=== PATIENT | male | born 1955 | race Caucasian/White ===

== ENCOUNTER 2016-07-28 17:14 | Inpatient (IN) | payer OTHER ==
[~2016-07-28] VITALS: Ht 182.9 cm; Wt 84.5 kg
[2016-07-28] VITALS (12 sets, daily range): BP systolic 96–155; BP diastolic 62–96; PULSE 82–166; RESP 13–25; O2SAT 95–100
[~2016-07-28 17:14] MED LIST: ALBU2.5V4 NEB; ASPI81TA3 PO; ATOR40TA69 PO; LISI-571 PO; METO25TA99 PO; NITR0.4T SL; PRAS10TA5 PO
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
[2016-07-28] MEDS ORDERED: Diltiazem 5 mg/mL 5 mL Inj ONE (17:22)
[2016-07-28] MEDS ORDERED: 0.9% Sodium Chloride 1,000 ML IV ONE (17:24)
[2016-07-28] MEDS ORDERED: Ondansetron 2 mg/mL 2 mL Inj IVPUSH ONE (17:25)
[2016-07-28] MEDS ORDERED: Diltiazem 5 mg/mL 5 mL Inj IVPUSH ONE ×2 (17:30→17:50)
[2016-07-28 17:40] LABS: BASOPHILS % (AUTO) 0.5 % (0-3); EOSINOPHILS % (AUTO) 3.6 % (0-5); MONOCYTES % (AUTO) 9.5 % (4-12); Mean Corpuscular Hemoglobin 28.6 pg (27.0-35.0); Mean Corpuscular Volume 84.2 fL (81-100); NEUTROPHILS % (AUTO) 61.2 % (40-74); Platelet Count 269 bil/L (150-400)
[2016-07-28 17:55] LABS: D-Dimer < 0.50 mg/L FEU (<0.50); INR 0.98 ratio
[2016-07-28] MEDS ORDERED: Propofol 10 mg/mL 20 mL Inj IVPUSH ONE ×2 (18:00→18:45)
[2016-07-28 18:05] LABS: TROPONIN T < 0.010 ug/L (0.0-0.011)
[2016-07-28 18:14] LABS: Creatine Kinase 120 U/L (21-232)
[2016-07-28] MEDS ORDERED: Heparin 25K Unit/500mL 0.45 NS 25,000 UNIT in IV Premix 1 EACH IV ONE (18:35)
[2016-07-28] MEDS ORDERED: Heparin 5,000 Unit/mL Inj IVPUSH ONE (18:35)
[2016-07-28] MEDS ORDERED: Nitroglycerin 2% 1 Gm Ointment TOPICAL SCH (18:45)
--- NOTE | 2016-07-28 18:51 | DRSVH ---
PROCEDURE: X-RAY CHEST ONE VIEW, PORTABLE ([id number]) INDICATIONS: cp TECHNIQUE: One view of the chest was acquired. COMPARISON: [facility], CR, XR CHEST 1VW (PORTABLE), 01/08/2016, 22:58. FINDINGS: Surgical changes and devices: None. Lungs and pleura: No pleural effusions or pneumothorax. Lungs are clear. The right costophrenic an gle is not included in study. Mediastinum: Mediastinal contours appear normal. Heart size is normal. Bones and chest wall: No suspicious bony lesions. Overlying soft tissues appear unremarkable. IMPRESSION: No acute disease Dictated by: Juanjo Luther M.D. on 07/28/2016 at 18:49 Approved by: Juanjo Luther M.D. on 07/28/2016 at 18:49
[2016-07-28] MEDS ORDERED: METO25TA6 PO (18:56)
[2016-07-28] MEDS ORDERED: VITA400C64 PO (18:56)
[2016-07-28] MEDS ORDERED: Alum-Mag Hydrox-Simeth 30 mL Suspension PO PRN (20:05)
[2016-07-28] MEDS ORDERED: Polyethylene Glycol (PEG) 17 Gm Powder PO PRN (20:05)
[2016-07-28] MEDS ORDERED: Senna-Docusate 8.6-50 mg Tablet PO PRN (20:05)
[2016-07-28] MEDS ORDERED: Atropine 1 mg/10 mL (Code) Syringe IVPUSH PRN (20:05)
[2016-07-28] MEDS ORDERED: Ondansetron 2 mg/mL 2 mL Inj IVPUSH PRN (20:05)
[2016-07-28] MEDS ORDERED: Heparin 5,000 Unit/mL Inj IVPUSH PRN (20:50)
[2016-07-28] MEDS ORDERED: Heparin 25K Unit/500mL 0.45 NS 25,000 UNIT in IV Premix 1 EACH IV SCH (20:50)
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
[2016-07-28] MEDS: MeTOProlol XL 25 mg ER24 Tablet PO SCH (21:38)
[2016-07-28] MEDS: 0.9% Sodium Chloride 1,000 ML IV SCH (21:38)
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
[2016-07-29] VITALS (11 sets, daily range): BP systolic 94–115; BP diastolic 64–78; PULSE 65–91; RESP 15–20; O2SAT 95–98
[2016-07-29] MEDS: Albuterol-Ipratropium 3 mL Inhalation Solution NEB PRN ×3 (00:02→21:36)
--- NOTE | 2016-07-29 00:09 | NUR ---
Admit: Pt admitted to [facility] room 2030. med rec completed in ER. Pt denies any pain. Heparin gtt infusing per cardiac protocol. Sp02 90s on RA. Tele Showing Afib 90s. however HR did increased to low 100s-130s. Discussed with Dr. Lopez HR. states to monitor HR and if sustaining above 120 to notify him. HR currently low 100s- does briefly increase to 120-130s but does not sustain. Second troponin came back elevated @ 0.286- MD aware. PT resting comfortably in bed- care ongoing.
[2016-07-29] MEDS: Sodium Chloride LOK Flush 10 mL Syringe IVFLUSH SCH ×4 (00:52→23:18)
[2016-07-29] MEDS ORDERED: Potassium Chloride Inj 20 MEQ in Dextrose 5% 250 ML IV ONE (00:55)
[2016-07-29 02:42] LABS: BASOPHILS % (AUTO) 0.5 % (0-3); EOSINOPHILS % (AUTO) 3.9 % (0-5); MONOCYTES % (AUTO) 7.2 % (4-12); Mean Corpuscular Hemoglobin 28.6 pg (27.0-35.0); Mean Corpuscular Volume 85.9 fL (81-100); NEUTROPHILS % (AUTO) 63.2 % (40-74); Platelet Count 187 bil/L (150-400)
[2016-07-29 03:26] LABS: TROPONIN T 0.542 ug/L (0.0-0.011)
[2016-07-29] MEDS: 0.9% Sodium Chloride 1,000 ML IV SCH ×2 (06:45→16:59)
[2016-07-29] MEDS: MeTOProlol XL 25 mg ER24 Tablet PO SCH ×2 (08:47→19:54)
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
--- NOTE | 2016-07-29 13:35 | PCM.PNMED ---
Subjective Date of Service July 29, 2016 Subjective Patient is a 60-year-old male with a history of asthma, tobacco abuse, and recent STEMI s/p 3 bare metal stents who presented to the ED c/o heavy substernal chest pain associated diaphoresis, fatigue and shortness of breath and found to be in Afib w/RVR. Admitted for further evaluation and management of Afib w/RVR and possible NSTEMI. Hospital day #1. Admitted to [facility] and started on heparin drip. Remained hemodynamically stable overnight. Initial troponin was negative and trended up: 0.542 and most recent troponin 0.484. This morning patient states that his chest pressure has improved significantly. He does report mild shortness of breath but denies diaphoresis, nausea or vomiting. Exam Vital Signs Vital Sign - Last Date Time Temp Pulse Resp B/P Pulse Ox O2 Delivery O2 Flow Rate FiO2 07/29/16 08:37 36.5 80 16 115/78 98 Room Air 07/28/16 20:26 2 Intake and Output 07/28/16 07/28/16 07/29/16 Cumulative From/Thru 15:00 23:00 07:00 07/28/16 17:16 - 07/29/16 05:56 Intake Total 1000 ml 1481 ml 2481 ml Output Total 400 ml 400 ml Balance 1000 ml 1081 ml 2081 ml Intake Oral 200 ml 200 ml IV Total 1000 ml 1281 ml 2281 ml Output Urine Total 400 ml 400 ml Exam General: Well developed, in no acute distress, communicating appropriately HEENT: Normocephalic and atraumatic, PERRLA, Oropharynx moist and pink, poor dentition Neck: Soft, nontender, trachea midline, no JVD noted Cardiovascular: Regular rate and rhythm, with soft systolic murmur, peripheral pulses intact and equal Pulmonary: Normal respiratory effort, grossly clear to auscultation bilaterally w/mild crackles at the bases, no wheezing or rhonchi Abdomen: Soft, nondistended, nontender, no organomegaly or masses appreciated. Bowel tones present. Musculoskeletal: MS grossly intact and equal, no swollen or tender joints, no clubbing or edema Neurologic: Cranial nerves grossly intact, no focal deficits Skin: Normal temperature and turgor, no rashes or ulcerations noted Psychiatric: Appropriate mood and affect, alert and oriented x3. IVs and Medications Medications Reviewed: Medications were reviewed in detail Lab and Diagnostics Laboratory Tests Test 07/28/16 17:20 07/28/16 22:10 07/29/16 02:30 07/29/16 08:40 White Blood Count 13.5th/mm3 (3.8-10.1) 9.7th/mm3 (3.8-10.1) Red Blood Count 5.56mil/mm3 (4.40-5.80) 4.19mil/mm3 (4.40-5.80) Hemoglobin 15.9g/dL (13.8-17.2) 12.0g/dL (13.8-17.2) 12.6g/dL (13.8-17.2) Hematocrit 46.8% (41.0-50.0) 36.0% (41.0-50.0) 37.9% (41.0-50.0) Mean Corpuscular Volume 84.2fL (81-100) 85.9fL (81-100) Mean Corpuscular Hemoglobin 28.6pg (27.0-35.0) 28.6pg (27.0-35.0) Mean Corpuscular Hemoglobin Concent 34.0% (32.0-37.0) 33.3% (32.0-37.0) Red Cell Distribution Width 13.4% (12.3-15.4) 13.3% (12.3-15.4) Platelet Count 269bil/L (150-400) 187bil/L (150-400) Neutrophils (%) (Auto) 61.2% (40-74) 63.2% (40-74) Lymphocytes (%) (Auto) 24.8% (14-46) 24.9% (14-46) Monocytes (%) (Auto) 9.5% (4-12) 7.2% (4-12) Eosinophils (%) (Auto) 3.6% (0-5) 3.9% (0-5) Basophils (%) (Auto) 0.5% (0-3) 0.5% (0-3) Prothrombin Time 10.5sec (8.1-12.5) Prothromb Time International Ratio 0.98ratio D-Dimer < 0.50mg/L FEU (<0.50) Sodium Level 135mEq/L (134-144) 139mEq/L (134-144) Potassium Level 3.6mEq/L (3.5-5.2) 3.7mEq/L (3.5-5.2) 4.1mEq/L (3.5-5.2) Chloride Level 95mEq/L (97-108) 103mEq/L (97-108) Carbon Dioxide Level 20mmol/L (18-29) 21mmol/L (18-29) Blood Urea Nitrogen 22mg/dL (8-27) 21mg/dL (8-27) Creatinine 1.06mg/dL (0.76-1.27) 0.79mg/dL (0.76-1.27) Estimat Glomerular Filtration Rate 75mL/min (>59) 106mL/min (>59) Glucose Level 116mg/dL (60-99) 105mg/dL (60-99) Calcium Level 10.3mg/dL (8.5-10.1) 8.6mg/dL (8.5-10.1) Magnesium Level 2.0mg/dL (1.6-2.6) Total Bilirubin 0.4mg/dL (0.0-1.2) Aspartate Amino Transf (AST/SGOT) 24U/L (0-50) Alanine Aminotransferase (ALT/SGPT) 22U/L (0-44) Alkaline Phosphatase 77U/L (25-160) Total Creatine Kinase 120U/L (21-232) Creatine Kinase MB 2.5ng/mL (0.0-10.4) Creatine Kinase MB % % (0.0-5.0) Troponin T < 0.010ug/L (0.0-0.011) 0.286ug/L (0.0-0.011) 0.542ug/L (0.0-0.011) 0.484ug/L (0.0-0.011) Pro-B-Type Natriuretic Peptide 303.6pg/mL (0-210) Total Protein 8.2g/dL (6.4-8.4) Albumin 5.1g/dL (3.4-5.0) Hold Jean-Baptiste Top Tube Received (Received) Alcohols < 10mg/dL (0-10) Activated Partial Thromboplast Time 59.5sec (22.8-33.0) 56.1sec (22.8-33.0) Triglycerides Level 142mg/dL (0-149) Cholesterol Level 191mg/dL (100-199) LDL Cholesterol, Calculated 123.600mg/dL (0-99) VLDL Cholesterol 28.400mg/dL HDL Cholesterol 39mg/dL (>39) Cholesterol/HDL Ratio 4.90 (0.0-4.4) Thyroid Stimulating Hormone (TSH) 5.060uIU/mL (0.450-4.500) Free Thyroxine 1.08ng/dL (0.82-1.77) Result Diagram: 07/29/16 0840 07/29/16 0230 X-Rays, CTs and MRIs PROCEDURE: X-RAY CHEST ONE VIEW, PORTABLE IMPRESSION: No acute disease Dictated by: Juanjo Luther M.D. on 07/28/2016 at 18:49 Approved by: Juanjo Luther M.D. on 07/28/2016 at 18:49 Assessment & Plan 60-year-old male with a history of asthma, tobacco abuse, and recent STEMI s/p 3 bare metal stents who presented to the ED c/o heavy substernal chest pain associated diaphoresis, fatigue and shortness of breath and found to be in Afib w/RVR. Admitted for further evaluation and management of Afib w/RVR and possible NSTEMI. Hospital day #1. 1. Atrial fibrillation with rapid ventricular response, present on admission. Resolved -Unknown chronicity. Patient denies palpitations or prior diagnosis of Afib. Likely due to ischemia. -Received IV pushes of Diltiazem in the ED w/ good response. Currently in normal sinus rhythm. -Cardiology following, recommendations as follows: -aspirin 81 mg once daily -atenolol 50 mg -lovastatin 40 mg daily. -Echocardiogram pending -TSH mildly elevated at 5.06, free T4 wnl (1.08) 2. NSTEMI, acute. present on admission. Active -Patient w/ known coronary artery disease and recent STEMI s/p stent placement and noncompliance with medications due to cost. -EKG on admission showed AFib with rate in the 150s and Qwaves inferiorly. -Admitted to [facility] and started on cardiac Heparin drip. -Continue statin, aspirin per Cardiology. -Troponin trended down, appears stable -SL nitro prn 3. Asthma, chronic. present on admission. Ongoing -Not in acute exacerbation -Duonebs prn 4. Chronic hyperlipidemia, present on admission. Ongoing. -Continue statin 5. Nicotine addiction, present on admission. Ongoing -Counseled regarding tobacco cessation Tylenol prn fever/pain Bowel regimen prn constipation Ativan prn anxiety Disposition: Patient will likely discharge in 1-2 days pending echo and further evaluation. Pain Evaluation: Adequate Pain Control VTE Prophylaxis: SCDs, Other (heparin gtt) Resuscitation Status: CPR: Attempt Resuscitation Attending Statement The patient was seen and examined together with Dr. Wilkes on 07/29/2016 and I agree with the history, exam and plan as outlined in the note above. . Amanda Wilkes DO July 29, 2016 09:22 Jeremiah Chin MD July 30, 2016 18:39
--- NOTE | 2016-07-29 14:25 | DRSVH ---
[facility] [address] [place] [address] Echocardiogram Report Name: ALINE MCGOWAN Study Date: 07/29/2016 Height: 72 in Hospital Exam Location: [facility] Weight: 185 lb Gender: Male BSA: 2.1 m2 : 1955 Age: 60 yrs BP: 94/64 mmHg Reason For Study: CAD Ordering Physician: Performed By: Christo Stockton Interpretation Summary There is mild concentric left ventricular hypertrophy. Left ventricular systolic function is normal. The ejection fraction is estimated to be 55-60%. There is basal inferior wall hypokinesis. Assessment of diastolic parameters indicates a relaxation abnormality of the left ventricle, consistent with normal filling pressures. The right ventricle is normal in size and function. Pulmonary artery pressures cannot be estimated because of the lack of a measurable TR jet velocity. The left atrial size is normal. Right atrial size is normal. There is no significant valvular heart disease. The ascending aorta is mildly enlarged. No significant changes since 01/10/2016. Procedure: A two-dimensional transthoracic echocardiogram with color flow and Doppler was performed. The study quality was technically adequate. Comparison is made with the echocardiogram of 01/10/16. The patient was in normal sinus rhythm during the exam. The heart rate ranged between 58-72 bpm during the study. Left Ventricle: The left ventricle is normal in size. There is mild concentric left ventricular hypertrophy. Left ventricular systolic function is normal. The ejection fraction is estimated to be 55-60%. There is basal inferior wall hypokinesis. Assessment of diastolic parameters indicates a relaxation abnormality of the left ventricle, consistent with normal filling pressures. Right Ventricle: The right ventricle is normal in size and function. Atria: The left atrial size is normal. Right atrial size is normal. The interatrial septum is intact with no evidence for an atrial septal defect. Mitral Valve: The mitral valve is normal. There is trace mitral regurgitation. Aortic Valve: The aortic valve is trileaflet. The aortic valve is mildly calcified. There is no hemodynamically significant valvular aortic stenosis. No aortic regurgitation is present. Tricuspid Valve: The tricuspid valve is not well visualized, but is grossly normal. Pulmonary artery pressures cannot be estimated because of the lack of a measurable TR jet velocity. Pulmonic Valve: The pulmonic valve leaflets are thin and pliable; valve motion is normal. There is a trace or physiologic amount of pulmonic regurgitation. There is no significant valvular heart disease. Great Vessels: The aortic root is normal size. The ascending aorta is mildly enlarged. The pulmonary artery is normal size. The IVC is of normal diameter and collapses greater than 50% with a sniff. This suggests a low right atrial pressure of 3 mm Hg. Pericardium/ Pleura There is no pericardial effusion. There is no pleural effusion. MMode/2D Measurements & Calculations LVIDd: 4.6 cm RA long axis LVOT diam: 2.1 cm LVIDs: 3.0 cm LA A2 area: 15.1 cm AoV Opening FS: 34.5 % LA A4 area: 17.4 cm RA area EPSS: 0.03 cm LA length (vol) Ao root diam IVSd: 1.2 cm : 16.0 cm LVPWd: 1.1 cm LA vol: 54.3 ml RA vol asc Aorta Diam LA vol index : 40.5 ml RA Ao Arch Diam (Prox : 26.4 ml/m2 : 19.7 mm2 Trans): 2.9 cm LV bravo. diameter/BSA LV sys. diameter/BSA RVD1 (basal) RVD2 (mid): 2.7 cm (cm/m^2): 2.2 (cm/m^2): 1.4 TAPSE: 2.5 cm Doppler Measurements & Calculations Ao V2 max MV E max jose d MV E/A: 0.92 PA V2 max : 161.7 cm/sec : 73.3 cm/sec Med Peak E' Jose D : 64.2 cm/sec Ao max P.5 mmHg MV A max jose d PA mean PG Ao mean P.0 mmHg : 79.3 cm/sec E/E' med: 9.5 : 0.88 mmHg LVOT Max Jose D Lat Peak E' Jose D : 139.4 cm/sec E/E' lat: 8.0 DEYSI(I,D): 3.1 cm E/e' average sev ratio: 0.89 Pulm A Revs Dur MV A dur : 0.11 sec MV dec time: 0.20 secAo V2 mean LV V1 max PG PA V2 mean : 115.9 cm/sec : 44.0 cm/sec Ao V2 VTI: 32.9 cm LV V1 VTI PA pr(Accel) : 29.3 cm : 30.7 mmHg DEYSI(V,D): 3.0 cm2 DEYSI indexed to BSA Pulgail De La O Revs Dur - MV A (cm^2/m^2): 1.5 Dur: 0.02 msec Reading Physician:CELIA
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
--- NOTE | 2016-07-29 18:46 | NUR ---
Heparin gtt/Activity/Tele Patient a/o x 3, denies chest pain, nausea or sob, but has noted dyspnea with activity. Patient oob in room steady gait. Heparin gtt infusing PTT not in goal this shift, next lab draw at 2049. Patient taking diet well. VSS, tele converted from A fib to SR this a.m. Will cont poc.
[2016-07-30] MEDS: 0.9% Sodium Chloride 1,000 ML IV SCH (02:28)
[2016-07-30 03:00] LABS: BASOPHILS % (AUTO) 0.6 % (0-3); MONOCYTES % (AUTO) 8.5 % (4-12); Mean Corpuscular Hemoglobin 28.9 pg (27.0-35.0); Mean Corpuscular Volume 86.5 fL (81-100); NEUTROPHILS % (AUTO) 55.8 % (40-74); Platelet Count 159 bil/L (150-400)
[2016-07-30 03:15] VITALS: BP 101/65; PULSE 82; RESP 15; O2SAT 96
[2016-07-30 05:53] VITALS: PULSE 76
[2016-07-30] MEDS: Sodium Chloride LOK Flush 10 mL Syringe IVFLUSH SCH (08:30)
[2016-07-30 08:49] VITALS: BP 137/81; PULSE 84; RESP 18; O2SAT 99
[2016-07-30] MEDS: MeTOProlol XL 25 mg ER24 Tablet PO SCH (08:59)
[2016-07-30 09:08] VITALS: PULSE 82; RESP 16; O2SAT 97
[2016-07-30] MEDS ORDERED: LOVA40TA PO (10:08)
[2016-07-30] MEDS ORDERED: LISI10TA PO (10:08)
[2016-07-30] MEDS ORDERED: ATEN50TA PO (10:08)
[2016-07-30] MEDS ORDERED: ASPI81TA3 PO (10:08)
--- NOTE | 2016-07-30 10:11 | PCM.DIMED ---
Amanda Wilkes DO 07/30/16 0952: Discharge Instructions Date of Service July 30, 2016 Dates of Hospitalization July 28, 2016 at 20:32 Discharge Diagnosis Discharge Diagnosis 1. Transient Atrial fibrillation with rapid ventricular response 2. NSTEMI, acute. 3. Old inferior myocardial infarction. 4. Asthma, chronic. 5. Chronic hyperlipidemia 6. Nicotine addiction Medication Instructions Some changes were made to your medications during this hospital stay and listed below. Start taking the following medications: -Lisinopril 10mg. Take one tablet by mouth once daily. -Lovastatin 40mg. Take one tablet by mouth once daily. -Atenolol 50mg. Take one tablet by mouth once daily. -Aspirin 81mg. Take one tablet by mouth once daily. Stop taking the following medications: -Prasugrel -Atorvastatin -Metoprolol Diet Heart Healthy Call your provider Fever or Chills, Shortness of breath, Chest pain, Weakness (unilateral) Patient Instructions Follow up with your primary care physician in 1-2 weeks. Follow up with Cardiology in 3 months. Follow-up Provider: Kenia Beebe Follow-up with PCP in: 1 week Provider: Kennedy Monzon MD Follow-up in: Other (3 months) Jeremiah Chin MD 07/30/16 1840: Discharge Instructions Attending's Statement The patient was seen and examined together with Dr. Wilkes on 07/30/2016 and I agree with the history, exam and plan as outlined in the note above. . Amanda Wilkes DO July 30, 2016 09:52 Jeremiah Chin MD July 30, 2016 18:40
--- NOTE | 2016-07-30 10:14 | PROG NOTE ---
[address] [address] PROGRESS NOTE PATIENT: ALINE MCGOWAN : 1955 MR#: [id number] ADMIT: 07/28/2016 JOB ID: [id number] DATE: 07/30/2016 SUBJECTIVE: The patient reports feeling well today. He had no recurrent chest discomfort since admission. He denies orthopnea, PND, palpitation or syncope. OBJECTIVE: Temperature is 36.9, blood pressure is 137/81, pulse 82, body weight is 84.5 kg. Head and face have normal configuration. Anicteric sclerae. Moist mucosa. Neck supple. No jugular venous distention or carotid bruits. Chest: normal expansion. Lungs are clear to auscultation. Heart. The first and second heart sounds normal. No gallop or murmur. Abdomen is soft, nontender. Extremities: No clubbing, cyanosis or edema. BLOOD TESTS: Show hemoglobin 11.6, WBC 7.9, platelet 159. Sodium 141, potassium 3.8, chloride 107, bicarb 22, BUN 15, creatinine 0.76, glucose 101. Troponin T 0.484. Echocardiogram showed mild concentric left ventricular hypertrophy with ejection fraction 55-60%. There is basal inferior wall hypokinesis. Normal right ventricle and both atria. No valvular abnormality. Mildly enlarged ascending aorta. No significant change since January 10, 2016. IMPRESSION: 1. Non ST elevated myocardial infarction. 2. Transient atrial fibrillation, currently in sinus rhythm. 3. Old inferior myocardial infarction. 4. Hypercholesterolemia. 5. Nicotine addiction. 6. Financial problem. PLAN: The echo finding does not show new inferior wall motion abnormality. This indicated that the right coronary artery stents remain open. This current admission is due to myocardial ischemia from not taking medicine. I believe that the patient could be discharged from the hospital. He was advised to stop smoking. He should be on: 1. Aspirin 81 mg once daily. 2. Atenolol 50 mg once daily. 3. Lisinopril 10 mg once daily. 4. Lovastatin 40 mg daily. FOLLOWUP: The patient will return to see me in three months with BMP and lipid profile. [facility]
--- NOTE | 2016-07-30 11:08 | NUR ---
Social Work: Discharge D: Pt discussed in am rounds. Pt is medically stable for discharge. NOTE TAKER met with pt at bedside to confirm discharge plan. Pt states he lives in his car and that he is awaiting an apartment that will accept a VASH Voucher. Pt expressed concerns with his [facility] [employer] and frustrations with the housing system. Pt states that he will continue to use the hospital as a resource for possible housing. NOTE TAKER informed pt that hospitals are for medical conditions and that he would not be admitted unless there was a medical reason to do so. NOTE TAKER also informed him of the very limited resources hospital staff has for housing. Pt continues to decline assistance connecting with [facility] [employer] and/or his [facility] and the [facility] Pt states he will be going to stay in his car. A: Pt who is I at baseline. P: Pt to discharge back to homelessness and to follow up with his outpatient providers for housing resources. SHAREE Zhao
--- NOTE | 2016-07-30 11:57 | NUR ---
Discharge pt ordered for discharge home with self. discharge instructions and medications reviewed with patient. pt escorted with steady gait to elevators with all belongings at about 1150.
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
== END 2016-07-30 11:48 | disposition home or self-care (01) | DRG 281 ==
LOC: SED 17:14 → OBSVTOIN 20:32 → PCC 20:32
PROVIDERS: ADMIT Hospitalist; ATTEND Internal Medicine
PROC: 5A2204Z Restoration of Cardiac Rhythm, Single (ICD-10-PCS; principal; 2016-07-28)
PROC: 3E033NZ Introduction of Analgesics, Hypnotics, Sedatives into Peripheral Vein, Percutaneous Approach (ICD-10-PCS; 2016-07-28)
DX: I21.4 Non-ST elevation (NSTEMI) myocardial infarction (principal); I48.1 Persistent atrial fibrillation; J45.909 Unspecified asthma, uncomplicated; F17.200 Nicotine dependence, unspecified, uncomplicated; E78.5 Hyperlipidemia, unspecified; I25.10 Atherosclerotic heart disease of native coronary artery without angina pectoris; Z79.82 Long term (current) use of aspirin; Z79.51 Long term (current) use of inhaled steroids; I25.2 Old myocardial infarction; Z95.5 Presence of coronary angioplasty implant and graft; Z91.14 Patient's other noncompliance with medication regimen; Z59.0 Homelessness